=== PATIENT | female | born 1990 | race Two or more races ===

== ENCOUNTER 2025-04-11 07:57 | Emergency (ER) | payer BC ==
[~2025-04-11] VITALS: Ht 170.2 cm; Wt 59.0 kg
[2025-04-11] MEDS ORDERED: ACETAMINOPHEN 500 MG GEL..CAP PO ONE ×2 (09:12→09:15)
[2025-04-11] MEDS ORDERED: NORFLEX100MG PO (12:27)
[2025-04-11] MEDS ORDERED: 8 HOUR650 MG PO (12:27)
== END 2025-04-11 13:51 | disposition home or self-care (01) ==
LOC: ER 07:57
DX: S93.401A Sprain of unspecified ligament of right ankle, initial encounter (principal); W18.39XA Other fall on same level, initial encounter; Y93.89 Activity, other specified; Y92.89 Other specified places as the place of occurrence of the external cause; Y99.9 Unspecified external cause status; Z88.6 Allergy status to analgesic agent